=== PATIENT | female | born 1935 | race Caucasian/White ===

== ENCOUNTER 2017-08-19 11:36 | Inpatient (IN) | payer MEDICARE ==
--- OUTSIDE RECORDS SUMMARY | 2017-08-19 11:55 | XMS REPORT ---
:1935 External Reference #:[id number] Author Organization [facility] Address [address] [address] Phone [phone] Care Team Providers Name Role Phone Benjy Nolasco D.O. Primary Care Physician Unavailable Payers Type Date Identification Numbers Payment Provider Subscriber Commercial Policy Number: [id number] [employer]/Todays Options Ivory Duarte PayID: [id number] [address] [address] Attn: [place] [address] Problems Description No Information Family History Date Family Member(s) Problem(s) Comments Father due to Emphysema () - 70's Mother due to Emphysema () - 70's Siblings 5 Siblings 3 - jan, unrelated to cardiac disease Social History Type Date Description Comments Marital Status 01/2017 Lives With Alone Lives With Alone lives "[place] farm" with family nearby 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 Mauser, every day M.D. Aspirin Low Active Chewtabs 81mg once Unknown Dose 000 daily Pantoprazole Active Tablets DR 40mg 1 by Unknown Sodium 000 mouth every day Clopidogrel 0 Active Tablets 75mg 1 by Unknown Bisulfate 000 mouth every day Metoprolol Hx Tablets ER 25mg 30tabs 03/01 by R94.39 Henrique Succinate ER 017 - 24HR mouth Brittany Baird, every M.D. 018 other day Minitran Hx Patches 0.1mg/HR 30unit apply 1 R94.39 Henrique 017 - 24HR s patch to Brittany Baidr, chest M.D. 017 wall every morning and remove each evening (pt is not using) Losartan Hx Tablets 25mg 1 by Unknown Potassium 000 - mouth every day 017 Vital Signs Date Vital Result Comment 07/22/2017 Height 62 inches 5'2" Weight 170.00 lb Heart Rate 68 /min BP Systolic Sitting 156 mmHg Lue LG Cuff BP Diastolic Sitting 70 mmHg Lue LG Cuff BP Systolic Standing 148 mmHg Lue LG Cuff BP Diastolic Standing 80 mmHg Lue LG Cuff Respiratory Rate 16 /min BMI (Body Mass Index) 31.1 kg/m2 05/18/2017 Height 62 inches 5'2" Weight 171.25 lb Heart Rate 54 /min BP Systolic Sitting 110 mmHg LA reg cuff BP Diastolic Sitting 70 mmHg LA reg cuff BMI (Body Mass Index) 31.3 kg/m2 Ejection Fraction 55-60% Saran 05/06/17 12/29/2016 Height 62 inches 5'2" Weight 172.00 lb with shoes Heart Rate 54 /min BP Systolic Sitting 140 mmHg LA reg cuff BP Diastolic Sitting 98 mmHg LA reg cuff BP Systolic Standing 143 mmHg la repeat sitting BP Diastolic Standing 78 mmHg la repeat sitting BMI (Body Mass Index) 31.5 kg/m2 Ejection Fraction 50%-55% echo 06/29/16 11/22/2016 Height 62 inches 5'2" Weight 168.25 lb with shoes Heart Rate 58 /min BP Systolic Sitting 148 mmHg LA reg cuff BP Diastolic Sitting 88 mmHg LA reg cuff BMI (Body Mass Index) 30.8 kg/m2 Ejection Fraction 55% - 60% stress echo 09/29/16 11/03/2016 Height 62 inches 5'2" Weight 167.00 lb with shoes Heart Rate 60 /min BP Systolic Sitting 138 mmHg LA reg cuff BP Diastolic Sitting 82 mmHg LA reg cuff BMI (Body Mass Index) 30.5 kg/m2 Ejection Fraction 50%-55% echo 06/29/16 10/13/2016 Height 62 inches 5'2" Weight 167.00 lb w/shoes Heart Rate 68 /min BP Systolic Sitting 140 mmHg LA lg cuff BP Diastolic Sitting 70 mmHg LA lg cuff BMI (Body Mass Index) 30.5 kg/m2 Ejection Fraction 55-60% Stress Echo 09/29/16 07/27/2016 Height 62 inches 5'2" Weight 168.00 lb Heart Rate 70 /min BP Systolic Sitting 144 mmHg LA reg cuff BP Diastolic Sitting 86 mmHg LA reg cuff BMI (Body Mass Index) 30.7 kg/m2 Ejection Fraction 50% - 55% echo 06/29/16 Results Test Date Test Result H/L Range Note Basic Metabolic Panel 11/08/2016 Sodium 142 mmol/L 133-145 Potassium 4.2 mmol/L 3.5-5.0 Chloride 107 mmol/L 101-111 Co2 Carbon Dioxide 32 mmol/L 22-32 Anion Gap 3 mmol/L 2-11 Glucose 89 mg/dL 70-100 Blood Urea Nitrogen 16 mg/dL 6-24 Creatinine 0.88 mg/dL 0.51-0.95 BUN/Creatinine Ratio 18.2 8-20 Calcium 9.1 mg/dL 8.6-10.3 Egfr Non- 61.7 >60 Egfr 79.3 >60 1 Inr/Protime 11/08/2016 Inr 0.88 Low 0.89-1.11 CBC Auto Diff 11/08/2016 White Blood Count 5.7 10^3/uL 3.5-10.8 Red Blood Count 4.96 10^6/uL 4.0-5.4 Hemoglobin 14.3 g/dL 12.0-16.0 Hematocrit 43 % 35-47 Mean Corpuscular Volume 86 fL 80-97 Mean Corpuscular Hemoglobin 29 pg 27-31 Mean Corpuscular HGB Conc 34 g/dL 31-36 Red Cell Distribution Width 14 % 10.5-15 Platelet Count 159 10^3/uL 150-450 Mean Platelet Volume 8 um3 7.4-10.4 Abs Neutrophils 3.6 10^3/uL 1.5-7.7 Abs Lymphocytes 1.4 10^3/uL 1.0-4.8 Abs Monocytes 0.5 10^3/uL 0-0.8 Abs Eosinophils 0.2 10^3/uL 0-0.6 Abs Basophils 0.1 10^3/uL 0-0.2 Abs Nucleated RBC 0 10^3/uL Granulocyte % 62.7 % 38-83 Lymphocyte % 24.1 % Low 25-47 Monocyte % 8.2 % 1-9 Eosinophil % 4.1 % 0-6 Basophil % 0.9 % 0-2 Nucleated Red Blood Cells % 0.1 Pre Cath Panel 11/08/2016 Partial Thrombo Time PTT 26.9 seconds 26.0- 36.3 1 Because ethnic data is not always readily available, this report includes an eGFR for both -Americans and non- Americans. The National Kidney Disease Education Program (NKDEP) does not endorse the use of the MDRD equation for patients that are not between the ages of 18 and 70, are , have extremes of body size, muscle mass, or nutritional status, or are non- or non-. According to the National Kidney Foundation, irrespective of diagnosis, the stage of the disease is based on the level of kidney function: Stage Description GFR(mL/min/1.73 m(2)) 1 Kidney damage with normal or decreased GFR 90 2 Kidney damage with mild decrease in GFR 60-89 3 Moderate decrease in GFR 30-59 4 Severe decrease in GFR 15-29 5 Kidney failure <15 (or dialysis) Procedures Date CPT Code Description Status 07/22/2017 53439 EKG Tracing & Interpretation Completed 05/06/2017 51615 Moderate Sedation Services; Same Phys Intl 15 Mins; PT Completed >=5 Years 05/06/2017 05013 Color Flow Doppler/Interp & Reprt Completed 05/06/2017 25085 Pulse Wave/Continuous-Interp.RPT Completed 05/06/2017 17884 Echocardiography, Transesophageal, Real Time W/Image 2D Completed W/W/O M-M 03/16/2017 59605 ECHO Stress Test Incl Perf Contiuous ekg Monitoring Completed W/Phys Superv 03/16/2017 53538 ECHO, Transthroacic,2D Incl M Mode Recording Complete Completed W/Color Matt 01/27/2017 26191 ECHO Transthoracic, Real-Time 2D With Doppler And Color Completed Flow 01/21/2017 69770 ECHO Transthoracic, Real-Time 2D With Doppler And Color Completed Flow 01/21/2017 89787 ECHO Transthoracic, Real-Time 2D With Doppler And Color Completed Flow 12/29/2016 52799 EKG Tracing & Interpretation Completed 11/10/2016 49646 Left Heart Cath. Incl S/I Coronaries, Angio S/I V Gram Completed If Done 11/03/2016 51677 Left Heart Cath. Incl S/I Coronaries, Angio S/I V Gram Completed If Done 10/09/2016 01404 Holter Monitor Review (24 hr)dr review & interp only Completed 10/06/2016 49928 ECG Monitor/Recording W/Visual Superimposition Scanning Completed 09/29/2016 99585 ECHO Stress Test Incl Perf Contiuous ekg Monitoring Completed W/Phys Superv 09/29/2016 68618 ECHO Stress Test Incl Perf Contiuous ekg Monitoring Completed W/Phys Superv 08/18/2016 57125 Holter Monitor Review (24 hr) review & interp only Completed 08/18/2016 22407 ECG Monitor/Recording W/Visual Superimposition Scanning Completed 07/27/2016 35129 EKG Tracing & Interpretation Completed 06/29/2016 37516 ECHO Transthorasic Realtime 2D W Doppler & Color Flow Completed Hosp 10/12/2013 59106 ECHO Transthoracic, Real-Time 2D With Doppler And Color Completed Flow 11/18/2009 76668 ECHO Transthoracic, Real-Time 2D With Doppler And Color Completed Flow Encounters Type Date Location Provider CPT E/M Dx Office Visit 05/18/2017 11:00a [facility] Henrique Baird, 67134 I35.0 M.D. I10 I25.10 R06.00 R42 R00.1 Office Visit 12/29/2016 11:00a [facility] Henrique Baird, 61147 I25.10 M.D. I35.0 I10 R94.31 R01.1 Office Visit 11/22/2016 11:40a [facility] Joleen Anguiano, 25618 I25.10 M.D. I35.0 I10 Office Visit 11/03/2016 10:00a [facility] FLORENCIA Araujo 43407 I25.10 I35.0 I10 Office Visit 10/13/2016 4:20p [facility] Joleen Anguiano, 57199 I35.0 Jane R01.1 I25.10 R31.0 Office Visit 07/27/2016 9:40a [facility] Henrique Baird M.D. 97844 I35.0 R01.1 R00.1 I50.9 E04.1 R94.31 Plan of Care Future Appointment(s):08/10/2017 11:00 am - Hayley Borges N.P. at [facility]08/08/2017 3:00 pm - [place] Schedule at [facility]2017 10:30 am - Henrique Baird M.D. 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
[2017-08-19 12:35] LABS: ABS Basophils 0 10^3/ul (0-0.2); ABS Eosinophils 0.2 10^3/ul (0-0.6); ABS Lymphocytes 1.1 10^3/ul (1.0-4.8); ABS Monocytes 0.9 10^3/ul (0-0.8); ABS Neutrophils 8.5 10^3/ul (1.5-7.7); ABS Nucleated RBC 0 10^3/ul; Eosinophil % 1.5 % (0-6); Hematocrit 40 % (35-47); Hemoglobin 13.4 g/dl (12.0-16.0); Lymphocyte % 10.3 % (25-47); Mean Corpuscular HGB Conc 34 g/dl (31-36); Mean Corpuscular Hemoglobin 28 pg (27-31); Mean Corpuscular Volume 82 fL (80-97); Mean Platelet Volume 7.2 um3 (7.4-10.4); Nucleated Red Blood Cells % 0; Platelet Count 213 10^3/ul (150-450); Red Blood Count 4.79 10^6/ul (4.00-5.40); Red Cell Distribution Width 14 % (10.5-15); White Blood Count 10.6 10^3/ul (3.5-10.8)
[2017-08-19 12:43] LABS: INR 1.08 (0.77-1.02)
[2017-08-19 13:03] LABS: Urine Appearance Clear; Urine Blood 3+ (Negative); Urine Color Straw; Urine Ketones Negative (Negative); Urine Protein 1+(30 mg/dL) (Negative); Urine Specific Gravity 1.001 (1.010-1.030); Urine Urobilinogen Negative (Negative)
[2017-08-19] MEDS ORDERED: Iohexol 300* (CONTRAST) 10 ML SDV IV ONE (13:14)
--- NOTE | 2017-08-19 14:27 | RAD ---
INDICATION: Right lower quadrant pain. Gross hematuria. COMPARISON: Renal and bladder sonogram October 27, 2016 TECHNIQUE: Three phase imaging was performed as part of CT urography. Initially, noncontrast imaging was performed from the hemidiaphragms through the symphysis. Nephrographic and pyelographic phase imaging was then performed with injection of 100 mL Omnipaque 300. Coronal and sagittal reconstructed images were acquired. 3-D CT urography images were generated as well. FINDINGS: Lung bases: The lung bases are clear. Liver: The liver is normal in size. There are no masses. There is no ductal dilatation. Gallbladder: Cholecystectomy. Spleen: The spleen is normal in size. There are no masses. Pancreas: There is no focal pancreatic mass or ductal dilatation. Adrenal glands: There is no evidence of adrenal mass. Kidneys: The kidneys are normal in size and position. There is no definitive evidence of urolithiasis. There are no renal calculi. There are no definite ureteral calculi. There are multiple phleboliths projecting over the minor pelvis which are along the course of the distal ureters. The nephrographic and pyelographic phase images are normal. There are bilateral renal cysts with a dominant 4.5 cm right renal cyst. Renal cysts have been described on earlier sonography. The ureters appear normal. Adenopathy: There is no evidence of adenopathy by size criteria. Fluid collections: There are no free or localized fluid collections. Vessels:There are no significant atherosclerotic changes involving the aorta. There is no focal aneurysm. The iliac vessels are normal in caliber. The IVC appears normal. GI tract: The upper GI tract is unremarkable. There is an enhancing periappendiceal mass measuring 4.6 cm proximal related to a appendiceal rupture with phlegmonous change. There is no well organized abscess with liquefactive center. There is nothing amenable to percutaneous drainage at present. Pelvic organs: There is hysterectomy. There is no adnexal mass Bladder: There are no bladder masses. There is trabeculation of bladder with mild enhancement suggests the possibility of cystitis. Abdominal and pelvic soft tissues: The extraperitoneal abdominal and pelvic soft tissues appear normal.. Osseous structures: There are no acute osseous findings. Other: None IMPRESSION: 1. No convincing CT evidence of urolithiasis. Suspect cystitis. Suggest urologic referral as indicated. 2. CT findings consistent with appendiceal rupture with resultant phlegmonous change. 3. Moderate diverticula. 4. Renal cysts. 5. Cholecystectomy. Hysterectomy. Findings discussed with ED.
[2017-08-19] MEDS ORDERED: Piperacillin/Tazobactam VIAL*) 3.375 GM/15 ML VIAL IVPB ONE (14:41)
[2017-08-19] MEDS ORDERED: Piperacillin/Tazobac ADVAN(*) 3.375 GM in NS 0.9% 100 ML* 100 ML IVPB ONE (14:57)
[2017-08-19] MEDS ORDERED: ZOSYN 3.375 GM x ONE DOSE over 30 miuntes IVPB ×2 (15:00)
[2017-08-19] MEDS ORDERED: oxyCODONE/Acetamin 5/325 MG* TAB PO PRN (15:09)
[2017-08-19] MEDS ORDERED: Ondansetron 40 MG VIAL* 2 MG/ML 20 ML VIAL IV PRN (15:09)
--- NOTE | 2017-08-19 16:03 | ED ---
Johnathan Bond Rebecca, scribed for Ellie Victoria MD on 08/19/17 at 1211 . Abdominal Pain/Female - HPI Summary HPI Summary: Pt is an 81 y/o F referred from Dr. Canales who presents to ED c/o RLQ abdominal pain for at least "a few weeks" though it may be longer. Pain began at mild intensity, has been constant since onset, waxing and waning in intensity, worse since yesterday after being palpated by her surgery scheduler. On triage, pain is moderate ranked 7/10. Sx aggravated by palpation, alleviated by nothing. Additionally c/o gross hematuria since this morning which is gradually improving since onset, none present the last time she urinated in the ED, per pt. Denies fever, CP, SOB. Saw Dr. Canales a year ago for hematuria though "they never figured out the cause". PSHx aortic valve replacement (TAVR) June [address] [facility] ([place], [place]) after which she was released by her surgery scheduler, Dr. Baird, yesterday. Is on Plavix. Pt went to Dr. Canales's office this am for the gross hematuria, and Dr. Canales referred pt to the ED for further evaluation, suspecting possible nonurologic cause for her RLQ pain, and advised CT urogram which was performed in the ED. - History of Current Complaint Chief Complaint: EDAbdPain Stated Complaint: ABD PAIN Time Seen by Provider: 08/19/17 12:04 Hx Obtained From: Patient, Family/Analytical Scientist - son Onset/Duration: Lasting Weeks - "a few", Still Present, Worse Since - Yesterday Timing: Constant Severity Initially: Mild Severity Currently: Moderate Pain Intensity: 7 Pain Scale Used: 0-10 Numeric Location: Discrete At: RLQ Radiates: No Character: Sharp Aggravating Factor(s): Other: - Palpation Alleviating Factor(s): Nothing Associated Signs and Symptoms: Positive: Other: - Hematuria. Negative: Fever, Nausea, Vomiting Allergies/Adverse Reactions: Allergies Allergy/AdvReac Type Severity Reaction Status Date / Time shrimp Allergy Swelling Uncoded 04/22/14 12:20 Home Medications: Home Medications Aspirin EC TAB* [Ecotrin EC Low Dose 81 MG*] 81 mg PO DAILY 08/19/17 [History Confirmed 08/19/17] Clopidogrel TAB* [Plavix TAB*] 75 mg PO DAILY 08/19/17 [History Confirmed ] Pantoprazole TAB (NF) [Protonix TAB (NF)] 40 mg PO DAILY 08/19/17 [History Confirmed 08/19/17] PMH/Surg Hx/FS Hx/Imm Hx Previously Healthy: No Endocrine/Hematology History: Denies: Hx Diabetes Cardiovascular History: Reports: Hx Hypertension Denies: Hx Congestive Heart Failure Musculoskeletal History: Denies: Hx Osteoporosis Sensory History: Reports: Hx Cataracts, Hx Contacts or Glasses, Hx Hearing Aid - RIGHT Opthamlomology History: Reports: Hx Cataracts, Hx Contacts or Glasses - Surgical History Surgery Procedure, Year, and Place: CHOLECYSTECTOMY 30 YRS AGO [facility]. HYSTERECTOMY 40 YRS AGO [facility]. FRACTURED RIGHT FOOT 2011 [facility], [place]. TAVR, [facility] ([place], [place]) 06/2017 Hx Anesthesia Reactions: No Infectious Disease History: No Infectious Disease History: Denies: Traveled Outside the [place] in Last 30 Days - Family History Known Family History: Positive: Other - [place] - Social History Occupation: Retired Alcohol Use: None Substance Use Type: Reports: None Smoking Status (MU): Never Smoked Tobacco Review of Systems Negative: Fever Negative: Chest Pain Negative: Shortness Of Breath Positive: Abdominal Pain Positive: hematuria Skin: Negative Neurological: Negative Psychological: Normal All Other Systems Reviewed And Are Negative: Yes Physical Exam - Summary Physical Exam Summary: Appearance: Well-appearing, mild pain distress, well-nourished, pink tinged urine noted in room during physical Skin: Warm, color reflects adequate perfusion, dry Head: Normal Head/Face inspection, atraumatic Eyes: Conjunctiva clear ENT: Normal inspection Neck: Supple, no nodes, no JVD Respiratory: Lungs clear, normal breath sounds, no respiratory distress Cardio: RRR, II/ systolic murmur, pulses normal, brisk capillary refill Abdomen: Soft, tender in the RLQ, positive guarding, no rebound, no masses, no CVA tenderness Bowel sounds: Present Musculoskeletal: Strength Intact/ROM intact, no calf tenderness, no edema. Psychological: Normal Neuro: Alert, muscle tone normal, no focal deficit Triage Information Reviewed: Yes Vital Signs On Initial Exam: Initial Vitals Temp Pulse Resp BP Pulse Ox 98.5 F 80 18 130/86 95 08/19/17 11:42 08/19/17 11:42 08/19/17 11:42 08/19/17 11:42 08/19/17 11:42 Vital Signs Reviewed: Yes Diagnostics - Vital Signs Vital Signs Temp Pulse Resp BP Pulse Ox 08/19/17 11:42 98.5 F 80 18 130/86 95 - Laboratory Result Diagrams: 08/23/17 07:39 08/23/17 07:39 Lab Statement: Any lab studies that have been ordered have been reviewed, and results considered in the medical decision making process. - CT Urogram CT CT Interpretation: Positive (See Comments) - 1. No convincing CT evidence of urolithiasis. Suspect cystitis. Suggest urologic referral as indicated. 2. CT findings consistent with appendiceal rupture with resultant phlegmonous change. 3. Moderate diverticula. 4. Renal cysts. 5. Cholecystectomy. Hysterectomy. Findings discussed with ED. ED physician reviewed this report. CT Interpretation Completed By: Radiologist - EKG 1144 Cardiac Rate: NL - 76 bpm EKG Rhythm: Sinus Rhythm ST Segment: Non-Specific Ectopy: None EKG Interpretation: Nl AVIVCT, nl QTC, Q axis (-28), no acute changes EKG Comparison: Other - no prior to compare Re-Evaluation - Re-Evaluation First Eval Re-Evaluation Time: 14:15 Change: Unchanged Comment: Continued discussing presentation of symptoms and physical examination. Second Eval Re-Evaluation Time: 14:31 Change: Improved Comment: Spoke with fani Rivers immediately prior to reevaluation. No pain currently, discussed CT results. Third Eval Re-Evaluation Time: 14:46 Change: Unchanged Comment: Dr. Simon is with patient who was advised that her daughter is coming in. Abdominal Pain Fem Course/Dx - Course Course Of Treatment: 81 yo F presented to Dr. Canales's office for gross hematuria this am and several week hx of RLQ abd pain, worsening. Dr. Canales referred pt to ED recommending CT urogram. Pt is s/p TAVR in 06/2017 and is on plavix. CT urogram showed ruptured appendix with plegmon. Pt has no signs of sepsis in the ED, and hematuria has cleared. Pt is an established pt of Dr. Canales for hematuria in the past, with no etiology established for the hematuria in the past. Pt is evaluated by Dr. Simon, general surgery, for the CT findings. airplane charter clerkCourt, notified Dr. Carvajal office that the pt has a ruptured appendicitis. Spoke with son again at 1440, discussing CT results and plan for surgical consult. 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 Discharge - Sign-Out/Discharge Documenting (check all that apply): Discharge/Admit/Transfer - Admit - Discharge Plan Condition: Stable Disposition: ADMITTED TO [facility] - Billing Disposition and Condition Condition: STABLE Disposition: Admitted to Health System The documentation as recorded by the Johnathan chi Rebecca accurately reflects the service I personally performed and the decisions made by , Ellie Victoria MD.
--- NOTE | 2017-08-19 16:38 | HP ---
CC: Dr. Salvatore Nolasco; [facility]; Dr. Henrique Baird; Dr. Prabhakar Canales HISTORY AND PHYSICAL: DATE OF ADMISSION: 08/19/17 LOCATION: The patient was seen on 08/19/17 in the emergency room. HISTORY OF PRESENT ILLNESS: I was contacted by the emergency room staff to evaluate Ms. Duarte, an 81- year-old female, who was recently diagnosed with possible ruptured appendicitis. The patient's story starts about 3 weeks ago when she started dealing with a right- sided abdominal p ain. This had waxed and waned as the patient describes. It has mostly stayed in the same spot in th e right lower quadrant, nonradiating. No accompanying nausea or vomiting, no fevers or chills, no co nstipation. The patient is status post TAVR at [place] in mid June. The patient had an uneventful course with a single overnight visit. She had followed up with her [employer] consultant yesterday and was cleared from ca rdiac standpoint after the procedure. The patient did describe her persistent abdominal pain had star randell to become worse at that time. She was referred to Urology due to hematuria. The patient describ ed gross hematuria. When she presented to Urology this morning, she was examined and it was felt kaushal t there was a potential for another intraabdominal process and for this reason was sent to the emerge ncy room for workup, which included a CT scan. The patient denies any previous similar symptoms. She does have appetite and she is doing her regula r activities. PAST MEDICAL HISTORY: Hypertension, heart murmur, and aortic stenosis. PAST SURGICAL HISTORY: Right foot surgery secondary to trauma, the TAVR as described, and a bladder sling. MEDICATIONS: Include: 1. Plavix 75 mg daily. She was told she needed this for 3 months after the procedure. 2. 81 mg aspirin. 3. Protonix, which I believe is likely given to her for protection since she was started on aspirin and Plavix. ALLERGIES: She is allergic to SHRIMP, but not allergic to any medications. SOCIAL HISTORY: [place] She has family nearby. Her in January. She is ambulatory, cooks for herself, wants to live to 89 years old. REVIEW OF SYSTEMS: No shortness of breath or chest pain. No fevers or chills. No nausea or vomitin g. Good appetite. Abdominal complaints as described. No dysuria, but hematuria that she notes has seemingly resolved over the course of last few hours. She does have appetite. She does walk with a limp. No bleeding or clotting disorders, but again is on the Plavix and aspirin as described. No hi story of ulcerative colitis or Crohn's disease. PHYSICAL EXAMINATION GENERAL: Alert and oriented x3, in no apparent distress. VITAL SIGNS: She is afebrile, 98.3; blood pressure is 146/84; heart rate is 74; O2 sat is 96% on angy m air. HEAD, EARS, EYES, NOSE, AND THROAT: Normocephalic and atraumatic. Sclerae anicteric. Mucous membra jimmie are moist. NECK: No lymphadenopathy. LUNGS: Clear to auscultation bilaterally. ABDOMEN: Soft, nondistended. Tender with tenderness to percussion, but no rebound, at the right low er quadrant. No hernias are noted. Tenderness does extend towards the suprapubic region. There are no overlying skin changes. She has no CVA tenderness. EXTREMITIES: Show minimal amount of pitting bilaterally. RECTAL: Exam was not performed. LABORATORY DATA/DIAGNOSTIC STUDIES: Labs reviewed, show a white count of 10.6. Chemistry panel has an elevated CRP of 56, total bilirubin of 1.3, lactic acid of 0.6. There is blood in her urine. CAT scan was performed. This was a urogram CT that required IV contrast only. These images were revi ewed. It did not show any free air or free fluid. There was an enhancing periappendiceal mass measu ring 4.6 cm that looked related to an appendiceal rupture with possible phlegmonous changes. No evid ence of organized abscess. She had moderate diverticula, but no diverticulitis. 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 IMPRESSION AND PLAN: An 81-year-old female, otherwise healthy, who presents with a close to 3-week h istory of waxing and waning right lower quadrant pain and now with signs of a ruptured appendix with tenderness to the right lower quadrant, but no evidence of obstruction or sepsis. The patient has posada d colonoscopies and showed no evidence of malignancy. Although this does remain a potential differen tial diagnosis, my recommendation at this point is IV fluids, IV antibiotics. She can take p.o. I w ould like to hold her aspirin and Plavix, but we will defer to Cardiology for this. I would like to repeat her CAT scan with p.o. and IV contrast on Tuesday to see if developing abscess is formed. I be lieve the patient would benefit from the IV antibiotics through the weekend. I have discussed this w ith the patient. She is aware and agrees to proceed in this fashion. She may require urgent surgery if she does show signs of sepsis. The patient's questions were answered. We will reach out to Card iology. I discussed the case with the hospitalist service whom I want to consult. TIME SPENT: Overall, 40 minutes were spent with the patient [id number] with additional time spent discussing with other doctors, mainly from the hospitalist service. [id number]/[facility] #: [id number]
[2017-08-19] MEDS: Piperacillin/Tazobactam VIAL*) 3.375 GM in NS 0.9% 100 ML* 100 ML IVPB SCH (20:28)
[2017-08-19] MEDS ORDERED: Heparin VIAL(*) 5000 UNITS/ML VIAL (FIVE THOUSAND) SUBCUT SCH (22:00)
[2017-08-19] MEDS: Heparin VIAL(*) 5000 UNITS/ML VIAL (FIVE THOUSAND) SUBCUT SCH (22:32)
--- NOTE | 2017-08-20 01:54 | CONS ---
CC: Dr. Nolasco MEDICAL CONSULTATION REPORT: DATE OF CONSULT: 08/19/17 TIME OF MY EVALUATION: 4 p.m. PRIMARY CARE PROVIDER: Benjy Nolasco DO REASON FOR CONSULTATION: Antiplatelet therapy management and timing of cessation around procedure for probable ruptured appendicitis. HISTORY OF PRESENT ILLNESS: Ms. Duarte was admitted to the hospital having complained of 3 weeks of right-sided abdominal pain that was diagnosed (via abdominal CT with contrast) as ruptured appendicitis. The patient described waxing and waning abdominal pain. The patient described the pain in her right lower quadrant without radiation and without other accompanying symptoms. She denied fevers. The patient had a transaortic valve replacement in [place] in June of this year, which was tolerated without complication. The patient also suffered from intermittent hematuria and was referred to Urology for this problem. The patient described gross hematuria and this largely resolved by the time she was seen by Dr. Canales. Dr. Canales felt that there was a nonurologic process at play and referred her to the emergency room for a CT scan. The CT scan showed the likely ruptured appendicitis. No history of previous abdominal surgeries and no history of long courses of steroids nor was there any history of diverticulitis or febrile episodes in the past month. PAST MEDICAL HISTORY: 1. Hypertension. 2. Aortic stenosis status post TAVR. 3. History of bladder sling. 4. History of right foot trauma surgery remotely. OUTPATIENT MEDICATIONS: 1. Protonix 40 mg by mouth daily. 2. Aspirin 81 mg daily. 3. Plavix 75 mg by mouth daily - for 3 months after the TAVR. ALLERGIES: SHRIMP but not to medications. SOCIAL HISTORY: She is a . She has family in the area. Her recently in January secondary to Alzheimer's disease. The patient is eager to continue living and wishes to be a full code. REVIEW OF SYSTEMS: The patient has remarkably negative review of 14 systems. The patient is walking without difficulty, though she has a limp. No known clotting disorders prior to her aspirin and Plavix. No history of diarrhea. No chest pain or difficulty breathing. No focal neurologic complaints. No history of thought disorder. No endocrinopathies noted. PHYSICAL EXAM: On admission; Vitals: Temperature 98.3 degrees Fahrenheit, blood pressure 140s/80s, heart rate 70s, oxygen saturation 96% on room air. HEENT: Oropharynx is clear. Mucous membranes are moist. No posterior pharyngeal erythema or exudates. NECK: No adenopathy. Normal JVD. Lungs: Clear to auscultation. No focal rales, rhonchi, or wheezing. Cardiac: No murmurs appreciated status post TAVR as noted. Normal peripheral perfusion. Abdomen is soft and nondistended. She does have right lower quadrant tenderness , but not acutely. Extremities: No clubbing or cyanosis. Minimal edema bilaterally. Neuro: No focal abnormalities. Normal sensory, motor, proprioception exam components. Psych: Normal affect. No acute anxiety or depression. ADMISSION DATA: Includes a white blood cell count of 10.6, hemoglobin 13.4, platelets 213. INR currently 1.08. Chemistries normal save a modestly elevated glucose of 107. Total bilirubin elevated at 1.3. AST and ALT are normal. Troponin 0. CRP elevated at 55. Albumin and total protein are 3.8 and 7.2, respectively. Lipase normal at 16. Lactic acid was normal on 2 separate occasions. The patient's urinalysis is 3+ blood, but no rbc's are appreciated, specific gravity 0.001. IMAGING STUDIES: Included the CT study at 11:39 hours on the day of admission and showed no convincing CT evidence of urolithiasis, but there were findings consistent with appendiceal rupture with resultant phlegmonous change with moderate diverticula, renal cyst noted and status post cholecystectomy and hysterectomy. IMPRESSION: Ms. Duarte is an 81-year-old female admitted with likely appendiceal rupture, referred to the emergency room from outpatient urology visit that concluded her symptomatology was non-urologic in nature. The patient is admitted to the surgical service. There was assistance wanted with respect to her antiplatelet therapy in the setting of being post transcatheter aortic valve replacement. In terms of antiplatelet therapy, this is to continue typically for 3 months following the transcatheter aortic valve replacement. This will continue for now as there is no intention of bringing the patient to the operating room tonight or even tomorrow. IV antibiotics have been started by the surgical team and I agree with the choice of Zosyn for ruptured appendix with mild peritoneal signs. The patient is stable at this point. I do not feel she is septic. In terms of holding the antiplatelet regimen, I would recommend stopping 2 days in advance of a planned IR drainage or surgery. If emergent surgery is needed, of course, one could proceed even in the setting of aspirin and Plavix therapy. However, because this symptomatology has been going on for weeks at this point, I think the likelihood of her decompensating while on antibiotics is unlikely. The patient will be admitted to the surgical floor and the hospitalist team will follow along with you. Thank you very much for the consultation and the opportunity to offer advisement on this kind patient's case. [id number]/[facility] #: [id number] MERI
[2017-08-20] MEDS: Piperacillin/Tazobactam VIAL*) 3.375 GM in NS 0.9% 100 ML* 100 ML IVPB SCH ×3 (04:01→19:42)
[2017-08-20] MEDS: Heparin VIAL(*) 5000 UNITS/ML VIAL (FIVE THOUSAND) SUBCUT SCH ×3 (05:46→21:35)
[2017-08-20 05:48] LABS: Hematocrit 35 % (35-47); Mean Corpuscular HGB Conc 34 g/dl (31-36); Mean Corpuscular Hemoglobin 28 pg (27-31); Mean Corpuscular Volume 82 fL (80-97); Red Blood Count 4.27 10^6/ul (4.00-5.40); Red Cell Distribution Width 14 % (10.5-15); White Blood Count 10.9 10^3/ul (3.5-10.8)
[2017-08-20 06:02] LABS: EGFR Non-African American 80.3 (>60)
[2017-08-20 06:30] LABS: Mean Platelet Volume 7.8 um3 (7.4-10.4); Platelet Count 179 10^3/ul (150-450)
[2017-08-20 06:31] LABS: ABS Basophils 0.2 10^3/ul (0-0.2); ABS Eosinophils 0.8 10^3/ul (0-0.6); ABS Lymphocytes 1.3 10^3/ul (1.0-4.8); ABS Neutrophils 8.5 10^3/ul (1.5-7.7); ABS Nucleated RBC 0.1 10^3/ul
[2017-08-20 06:32] LABS: Eosinophil % 1.7 % (0-6); Nucleated Red Blood Cells % 0.4
[2017-08-20 06:33] LABS: ABS Monocytes 0.8 10^3/ul (0-0.8)
[2017-08-20] MEDS: Clopidogrel TAB* 75 MG PO SCH (09:24)
[2017-08-20] MEDS: CMCS - Pantoprazole TAB (NF) 40 MG TAB PO SCH (09:24)
[2017-08-20] MEDS: Aspirin EC TAB* 81 MG TAB.EC PO SCH (09:24)
--- NOTE | 2017-08-20 09:44 | PN ---
Progress Note - Progress Note Date of Service: 08/20/17 SOAP: Subjective: Pt seen and examined. DOing well. tolerating diet continued RLQ pain. pos BM Objective: af vss lungs clear abdo: soft/ tender at RLQ, without rebound. palpable mass at site of pain labs noted Assessment: perforated appendicitis, HD stable; DDX includes malignancy Plan: abx ivlock SAACMA to cover me until 6.25
--- NOTE | 2017-08-20 19:05 | PN ---
Subjective Date of Service: 08/20/17 Interval History: . patient sleeping soundly this AM no pain without movement vitals stable and normal discussed plan for continued observation. plan for re-imaging 08/22/17 as per surgical team (CT Abd/pelvis with contrast). Family History: Unchanged from Admission Social History: Unchanged from Admission Past Medical History: Unchanged from Admission Objective Active Medications: . Aspirin (Aspirin Ec Tab*) [address] [facility] Last Admin: 08/20/17 09:24 Dose: 81 mg Clopidogrel Bisulfate (Plavix Tab*) [address] [facility] Last Admin: 08/20/17 09:24 Dose: 75 mg Heparin Sodium (Porcine) (Heparin Vial(*)) 5,[address] [facility] Last Admin: 08/20/17 15:34 Dose: 5,000 units Piperacillin Sod/Tazobactam (Sod 3.375 gm/ Sodium Chloride) 100 mls @ 25 mls/ hr IVPB Q8H [facility] Last Admin: 08/20/17 12:30 Dose: 25 mls/hr Ondansetron HCl (Zofran 40 Mg Vial*) 4 mg IV Q4H PRN PRN Reason: NAUSEA/VOMITING Oxycodone/Acetaminophen (Percocet 5/325 Tab*) 1 tab PO Q4H PRN PRN Reason: PAIN Pantoprazole Sodium (Protonix Tab (Nf)) [address] [facility] Last Admin: 08/20/17 09:24 Dose: 40 mg . Vital Signs - 8 hr 08/20/17 08/20/17 11:19 15:19 Temperature 98.8 F 98.1 F Pulse Rate 73 66 Respiratory 17 24 Rate Blood Pressure 116/56 111/51 (mmHg) O2 Sat by Pulse 95 96 Oximetry Oxygen Devices in Use Now: None Appearance: NAD Eyes: No Scleral Icterus Ears/Nose/Mouth/Throat: NL Teeth, Lips, Gums, Clear Oropharnyx Neck: NL Appearance and Movements; NL JVP Respiratory: Symmetrical Chest Expansion and Respiratory Effort Cardiovascular: NL Sounds; No Murmurs; No JVD Abdominal: - - RLQ tenderness on palpation, no generalized peritoneal signs. Lymphatic: No Cervical Adenopathy Extremities: No Edema Skin: No Rash or Ulcers Neurological: Alert and Oriented x 3 Lines/Tubes/Other Access: Clean, Dry and Intact Peripheral IV Nutrition: Taking PO's Result Diagrams: 08/20/17 05:21 08/20/17 05:21 Microbiology and Other Data: Microbiology 08/19/17 12:39 Urine Culture - Final Urine Assess/Plan/Problems-Billing . Assessment: 81 yo F with subacute abd pain and perforated acute appendicitis. Plan to consolidate with IV antibiotics -- and plan for drainage vs. surgery depending on results of CT Abdomen scheduled for 08/22/17. Hold antiplatelet therapy AM of 08/22/2017. - Patient Problems (1) Ruptured appendicitis Current Visit: Yes Status: Acute Priority: High Code(s): K35.2 - ACUTE APPENDICITIS WITH GENERALIZED PERITONITIS Comment: - IV Zosyn - repeat CT 08/22/17 - surgery team following.
[2017-08-20] MEDS ORDERED: NS 0.9% 100 ML* 100 ML ONE (19:39)
[2017-08-21] MEDS: Piperacillin/Tazobactam VIAL*) 3.375 GM in NS 0.9% 100 ML* 100 ML IVPB SCH ×3 (04:31→20:10)
[2017-08-21] MEDS: Heparin VIAL(*) 5000 UNITS/ML VIAL (FIVE THOUSAND) SUBCUT SCH ×3 (06:07→21:28)
[2017-08-21] MEDS: Clopidogrel TAB* 75 MG PO SCH (08:51)
[2017-08-21] MEDS: CMCS - Pantoprazole TAB (NF) 40 MG TAB PO SCH (08:51)
[2017-08-21] MEDS: Aspirin EC TAB* 81 MG TAB.EC PO SCH (08:51)
--- NOTE | 2017-08-21 13:11 | PN ---
Progress Note - Progress Note Date of Service: 08/21/17 Note: Afeb, VS OK Jam po's, No N/V, voiding well Abd: soft tender RLQ, no peritonitis/rebound, No Rovsing's Impr: Responding appropriately to abx for missed appendicitis re-check CT 08/22 Decrease ivf
--- NOTE | 2017-08-21 14:08 | PN ---
Subjective Date of Service: 08/21/17 Interval History: . Doing well. Denies pain unless moving. CT Abd/pelvis in AM. Hold plavix in AM. Potential for drainage in near future pending imaging results. Family History: Unchanged from Admission Social History: Unchanged from Admission Past Medical History: Unchanged from Admission Objective Active Medications: . Aspirin (Aspirin Ec Tab*) 81 mg PO DAILY [facility] Last Admin: 08/21/17 08:51 Dose: 81 mg Clopidogrel Bisulfate (Plavix Tab*) 75 mg PO DAILY [facility] Last Admin: 08/21/17 08:51 Dose: 75 mg Heparin Sodium (Porcine) (Heparin Vial(*)) 5,000 units SUBCUT Q8HR [facility] Last Admin: 08/21/17 06:07 Dose: 5,000 units Piperacillin Sod/Tazobactam (Sod 3.375 gm/ Sodium Chloride) 100 mls @ 25 mls/ hr IVPB Q8H [facility] Last Admin: 08/21/17 12:14 Dose: 25 mls/hr Ondansetron HCl (Zofran 40 Mg Vial*) 4 mg IV Q4H PRN PRN Reason: NAUSEA/VOMITING Oxycodone/Acetaminophen (Percocet 5/325 Tab*) 1 tab PO Q4H PRN PRN Reason: PAIN Last Admin: 08/20/17 19:42 Dose: 1 tab Pantoprazole Sodium (Protonix Tab (Nf)) 40 mg PO DAILY [facility] Last Admin: 08/21/17 08:51 Dose: 40 mg . Vital Signs - 8 hr 08/21/17 08/21/17 08/21/17 06:48 07:37 08:00 Temperature 98.7 F Pulse Rate 74 Respiratory 16 16 17 Rate Blood Pressure 135/71 (mmHg) O2 Sat by Pulse 93 Oximetry 08/21/17 11:31 Temperature 98.1 F Pulse Rate 68 Respiratory 17 Rate Blood Pressure 148/58 (mmHg) O2 Sat by Pulse 93 Oximetry Oxygen Devices in Use Now: None Appearance: NAD Eyes: No Scleral Icterus Ears/Nose/Mouth/Throat: NL Teeth, Lips, Gums, Clear Oropharnyx Neck: NL Appearance and Movements; NL JVP Respiratory: Symmetrical Chest Expansion and Respiratory Effort Cardiovascular: NL Sounds; No Murmurs; No JVD Abdominal: - - RLQ tenderness Lymphatic: No Cervical Adenopathy Extremities: No Edema Skin: No Rash or Ulcers Neurological: Alert and Oriented x 3 Lines/Tubes/Other Access: Clean, Dry and Intact Peripheral IV Nutrition: Taking PO's Result Diagrams: 08/20/17 05:21 08/20/17 05:21 Microbiology and Other Data: Microbiology 08/19/17 12:39 Urine Culture - Final Urine Assess/Plan/Problems-Billing . Assessment: 81 yo F with subacute abd pain and perforated acute appendicitis. Plan to consolidate with IV antibiotics -- and plan for drainage vs. surgery depending on results of CT Abdomen scheduled for 08/22/17. Hold anti-platelet therapy AM of 08/22/2017. - Patient Problems (1) Ruptured appendicitis Current Visit: Yes Status: Acute Priority: High Code(s): K35.2 - ACUTE APPENDICITIS WITH GENERALIZED PERITONITIS Comment: - IV Zosyn - repeat CT 08/22/17 - surgery team following.
--- NOTE | 2017-08-21 16:43 | CONSULT ---
Subjective Date of Service: 08/21/17 - CC: RLQ pain Interval History: Persistant RLQ pain with movement. Hematuria has resolved. No SOB. Family History: Unchanged from Admission Social History: Unchanged from Admission Past Medical History: Unchanged from Admission - Aortic stenosis s/p TAVR , HTN, BPV, CHF. s/p TAVR, cholecystectomy, YUNG Medications Active Medications: Aspirin (Aspirin Ec Tab*) 81 mg PO DAILY [facility] Last Admin: 08/21/17 08:51 Dose: 81 mg Clopidogrel Bisulfate (Plavix Tab*) 75 mg PO DAILY [facility] Heparin Sodium (Porcine) (Heparin Vial(*)) 5,000 units SUBCUT Q8HR [facility] Last Admin: 08/21/17 15:09 Dose: 5,000 units Piperacillin Sod/Tazobactam (Sod 3.375 gm/ Sodium Chloride) 100 mls @ 25 mls/ hr IVPB Q8H [facility] Last Admin: 08/21/17 12:14 Dose: 25 mls/hr Ondansetron HCl (Zofran 40 Mg Vial*) 4 mg IV Q4H PRN PRN Reason: NAUSEA/VOMITING Oxycodone/Acetaminophen (Percocet 5/325 Tab*) 1 tab PO Q4H PRN PRN Reason: PAIN Last Admin: 08/20/17 19:42 Dose: 1 tab Pantoprazole Sodium (Protonix Tab (Nf)) 40 mg PO DAILY [facility] Last Admin: 08/21/17 08:51 Dose: 40 mg Home Medications: Aspirin EC TAB* [Ecotrin EC Low Dose 81 MG*] 81 mg PO DAILY 08/19/17 [History Confirmed 08/19/17] Clopidogrel TAB* [Plavix TAB*] 75 mg PO DAILY 08/19/17 [History Confirmed ] Pantoprazole TAB (NF) [Protonix TAB (NF)] 40 mg PO DAILY 08/19/17 [History Confirmed 08/19/17] Review of Systems - Measurements Intake and Output: Intake and Output Last 24 Hours 08/19/17 08/20/17 08/21/17 08/22/17 04:59 04:59 04:59 04:59 Intake Total 878 1278 655 Output Total 650 9040 400 Balance 228 -372 255 Weight 170 lb Intake: IV Fluids 524 20 30 LR 524 NS 20 30 IVPB 114 213 105 ABX - ZOSYN 114 213 105 Oral 240 1045 520 Output: Urine 650 1650 400 Other: Date of Last Bowel 08/20/17 Movement # Bowel Movements 1 Estimated Stool Amount Small - Review of Systems General Comments: Denises SOB, orthopnea or chest pain. No fevers or chills. 2 week history of RLQ pain. Hematuria prior to admission. Review of Systems Statement: All other review of systems negative, unless stated above. Objective Vital Signs: Temp Pulse Resp BP Pulse Ox 98.1 F 68 17 148/58 93 08/21/17 11:31 08/21/17 11:31 08/21/17 11:31 08/21/17 11:31 08/21/17 11:31 Oxygen Devices in Use Now: None Appearance: elederly female seated, reading, appears comfortable. Eyes: PERRLA Ears/Nose/Mouth/Throat: Mucous Membranes Moist Neck: NL Appearance and Movements; NL JVP Respiratory: Symmetrical Chest Expansion and Respiratory Effort - crackles in the bases bilaterally. Cardiovascular: RRR - soft systolic murmur upper sternal border. Abdominal: - - RLQ tender. Extremities: No Edema, No Clubbing, Cyanosis Skin: No Rash or Ulcers Neurological: Alert and Oriented x 3 Laboratory Results: 08/20/17 05:21 08/20/17 05:21 INR (Anticoag Therapy) 1.08 (0.77-1.02) H 08/19/17 12:16 Total Bilirubin 1.30 mg/dL (0.2-1.0) H 08/19/17 12:16 AST 13 U/L (13-39) 08/19/17 12:16 ALT 8 U/L (7-52) 08/19/17 12:16 Alkaline Phosphatase 76 U/L (34-104) 08/19/17 12:16 Total Protein 7.2 g/dL (6.4-8.9) 08/19/17 12:16 Albumin 3.8 g/dL (3.2-5.2) 08/19/17 12:16 Globulin 3.4 g/dL (2-4) 08/19/17 12:16 Albumin/Globulin Ratio 1.1 (1-3) 08/19/17 12:16 08/19/17 12:16 Troponin I 0.00 Diagnostic Imaging: ECHO (Dr Baird) 08/16/17) EF 60-65%, abnormal diastolic filling, bioprosthetic AVR, no AI, mean gradient 18 mmHg, MAC (mitral annular cacification) with mild MR and MS, mild TR, PA pressure 43 mmHg. 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 Assessment/Plan 81 yo female with a history of severe aortic valve stenosis who underwent TAVR (#26 Vivi 3) who presented to Dr Baird's office 08/18/17 for routine evalauation, noted 2 weeks of RLQ pain and hematuria. The patient was sent to the ED and found to have a perforated appendix. Cardiology concerns include: Anticoagulation: Plavix and her fresh bioprosthetic valve. The plavix can be held now in anticipation of surgury or percutanous procedure, in this situation the risks of staying on much higher than holding. Plavix can be resumed post op when hemodynamically stable. Antibiotics and TAVR: Endocarditis risk increased over lower [place] valve, aggressive IV antibiotics on now. Would take endocarditis risk into consideration for post procedure antibiotic regimen and in decisions regarding surgical/procedural management, definitive treatment/procedure with the least chance of prolonged or recurrent bacteremia will be of benefit with her recent TAVR. CHF risk: Pt has had CHF in the past and based on her recent echo with gradients across the AV on the higher side and MR, MS, and diastolic dysfunction of the LV , she remains at risk for diastolic CHF. She has some crackles in the lungs now. I would avoid over aggressive hydration, carefull I/o's and follow clinically. Cardiology will follow distantly as the hospitalist service is comanaging.
[2017-08-22] MEDS: Piperacillin/Tazobactam VIAL*) 3.375 GM in NS 0.9% 100 ML* 100 ML IVPB SCH ×3 (03:47→20:05)
[2017-08-22] MEDS: Heparin VIAL(*) 5000 UNITS/ML VIAL (FIVE THOUSAND) SUBCUT SCH ×3 (05:44→22:51)
--- NOTE | 2017-08-22 10:34 | PN ---
Progress Note - Progress Note Date of Service: 08/22/17 SOAP: Subjective: Feels better today-pain improved Appetite slightly better Objective: Temp Pulse Resp BP Pulse Ox 98.3 F 63 16 147/69 98 08/22/17 07:49 08/22/17 07:49 08/22/17 07:49 08/22/17 07:49 08/22/17 07:49 Intake & Output 08/20/17 08/21/17 08/22/17 08/23/17 06:59 06:59 06:59 06:59 Intake Total 878 1278 1290 Output Total 950 1350 1100 300 Balance -72 -72 190 -300 Weight 170 lb Intake: IV Fluids 524 20 65 LR 524 NS 20 65 IVPB 114 213 305 ABX - ZOSYN 114 213 305 Oral 240 1045 920 Output: Urine 950 1350 1100 300 Other: Date of Last Bowel 08/20/17 Movement # Bowel Movements 1 Estimated Stool Amount Small PEX: Comfortable sitting up in chair Lungs are clear Abd is soft and non-distended. Bowel sounds are present Tenderness in the right lower quadrant with some voluntary guarding, no peritoneal irritation. No generalized tenderness. Ext without edema No labs today Assessment: Appendicitis--delayed presentation. CT with phlegmon, no obvious abscess. She feels better-remains afebrile on IV abx No signs of sepsis or peritonitis Plan: Continue IV abx CT today to follow up and rule out abscess development If continues to improve and no abscess, plan intermediate teacher IV and oral antibiotics with consideration of interval appendectomy. Discussed with patient and her son.
[2017-08-22] MEDS ORDERED: Iohexol 300* (CONTRAST) 10 ML SDV IV ONE (10:59)
[2017-08-22] MEDS: CMCS - Pantoprazole TAB (NF) 40 MG TAB PO SCH (12:14)
[2017-08-22] MEDS: Aspirin EC TAB* 81 MG TAB.EC PO SCH (12:14)
--- NOTE | 2017-08-22 12:41 | RAD ---
INDICATION: Ruptured appendicitis. Assess for abscess. Remote cholecystectomy and hysterectomy. COMPARISON: No relevant prior exams available on the [facility] for comparison. TECHNIQUE: Multidetector CT images were obtained from the lung bases to the ischial tuberosities with 103 mL Omnipaque 300 IV and oral contrast. Multiplanar reformation. 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 Post cholecystectomy. Negative for biliary dilatation. Unremarkable liver, pancreas, spleen. 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 Medially directed diverticulum at the second segment of the duodenum without acute inflammatory change. Enteric contrast extends to the distal sigmoid colon. No suspicious finding of the small bowel loops. Infra cecal appendix is dilated and ill-defined with severe periappendiceal inflammatory change. No conspicuous appendicolith No loculated abscess collection visualized. Small volume of nonloculated fluid along the RIGHT pelvic sidewall. Severe colonic diverticulosis most marked at the sigmoid colon without findings of acute diverticulitis. Negative for free air. Negative for significant hernias. Normal adrenal glands. Symmetric nephrograms and pyelograms. 3.6 cm cortical cyst mid pole RIGHT kidney. Smaller cortical cyst at the inferior pole of the LEFT kidney. Negative for hydronephrosis. Unremarkable nondilated ureters and partially distended urinary bladder. Post hysterectomy. Unremarkable adnexal regions. Negative for lymphadenopathy. Atherosclerotic plaque of normal diameter abdominal aorta and iliac arteries. Largely decompressed IVC indicating lower volume state. Chronic appearing moderate anterior compression fracture of T12. No acute fracture or suspicious focal osseous lesions evident. IMPRESSION: The constellation of findings is most consistent with acute appendicitis with severe periappendiceal inflammatory change without discrete loculated abscess collection.
[2017-08-23] MEDS: Piperacillin/Tazobactam VIAL*) 3.375 GM in NS 0.9% 100 ML* 100 ML IVPB SCH (04:20)
[2017-08-23] MEDS: Heparin VIAL(*) 5000 UNITS/ML VIAL (FIVE THOUSAND) SUBCUT SCH ×2 (05:39→13:51)
[2017-08-23 08:24] LABS: ABS Basophils 0 10^3/ul (0-0.2); ABS Eosinophils 0.2 10^3/ul (0-0.6); ABS Lymphocytes 1.2 10^3/ul (1.0-4.8); ABS Monocytes 0.4 10^3/ul (0-0.8); ABS Neutrophils 2.5 10^3/ul (1.5-7.7); ABS Nucleated RBC 0 10^3/ul; Eosinophil % 4.9 % (0-6); Hematocrit 36 % (35-47); Hemoglobin 12.5 g/dl (12.0-16.0); Mean Corpuscular HGB Conc 35 g/dl (31-36); Mean Corpuscular Hemoglobin 28 pg (27-31); Mean Corpuscular Volume 80 fL (80-97); Mean Platelet Volume 7.3 um3 (7.4-10.4); Nucleated Red Blood Cells % 0; Platelet Count 191 10^3/ul (150-450); Red Blood Count 4.44 10^6/ul (4.00-5.40); Red Cell Distribution Width 14 % (10.5-15); White Blood Count 4.4 10^3/ul (3.5-10.8)
[2017-08-23 08:42] LABS: EGFR Non-African American 77.7 (>60)
--- NOTE | 2017-08-23 08:43 | PN ---
Subjective Date of Service: 08/23/17 Interval History: Pt feels good today and would like to go home. She agrees to plan of placing midline and receiving IV abx for 1 week. She states transportation wont be a problem. Denies SOB/CP. No abd pain. No fevers or chills. Family History: Unchanged from Admission Social History: Unchanged from Admission Past Medical History: Unchanged from Admission Objective Active Medications: Aspirin (Aspirin Ec Tab*) 81 mg PO DAILY FOR[facility]LY [facility], [facility]1983 Last Admin: 08/22/17 12:14 Dose: Not Given Clopidogrel Bisulfate (Plavix Tab*) 75 mg PO DAILY FOR[facility]LY [facility], [facility]1983 Heparin Sodium (Porcine) (Heparin Vial(*)) 5,000 units SUBCUT Q8HR FOR[facility]LY [facility], 1928[facility]1983 Last Admin: 08/23/17 05:39 Dose: 5,000 units Piperacillin Sod/Tazobactam (Sod 3.375 gm/ Sodium Chloride) 100 mls @ 25 mls/ hr IVPB Q8H FOR[facility]LY [facility], [facility]1983 Last Admin: 08/23/17 04:20 Dose: 25 mls/hr Ondansetron HCl (Zofran 40 Mg Vial*) 4 mg IV Q4H PRN PRN Reason: NAUSEA/VOMITING Oxycodone/Acetaminophen (Percocet 5/325 Tab*) 1 tab PO Q4H PRN PRN Reason: PAIN Last Admin: 08/20/17 19:42 Dose: 1 tab Pantoprazole Sodium (Protonix Tab (Nf)) 40 mg PO DAILY FOR[facility]LY [facility], [facility] Last Admin: 08/22/17 12:14 Dose: Not Given Vital Signs - 8 hr 08/23/17 03:19 Temperature 98.2 F Pulse Rate 65 Respiratory 22 Rate Blood Pressure 152/56 (mmHg) O2 Sat by Pulse 97 Oximetry Oxygen Devices in Use Now: None Appearance: well developed 81 yo female laying in bed A+Ox3 in NAD Eyes: No Scleral Icterus, PERRLA Ears/Nose/Mouth/Throat: NL Teeth, Lips, Gums, Mucous Membranes Moist Neck: NL Appearance and Movements; NL JVP Respiratory: Symmetrical Chest Expansion and Respiratory Effort Cardiovascular: NL Sounds; No Murmurs; No JVD, RRR, No Edema Abdominal: NL Sounds; No Tenderness; No Distention Extremities: No Edema, No Clubbing, Cyanosis Skin: No Rash or Ulcers, No Nodules or Sclerosis Neurological: Alert and Oriented x 3, NL Sensation, NL Gait, NL Muscle Strength and Tone Lines/Tubes/Other Access: Clean, Dry and Intact Peripheral IV Nutrition: Taking PO's Result Diagrams: 08/23/17 07:39 08/23/17 07:39 Microbiology and Other Data: Microbiology 08/19/17 12:39 Urine Culture - Final Urine Assess/Plan/Problems-Billing . Assessment: 81 yo F with subacute abd pain and perforated acute appendicitis. - Patient Problems (1) Ruptured appendicitis Comment: - Doing well. Stable. -Appreciate ID consult, Plan to switch to Ceftriaxone 1gm IV (recommended for 1 week), place midline and set up with [facility] outpt infusion, and Flagyl 250 mg PO BID for 1 week then recommended switching to Augmentin for 2 weeks (after Flagyl and ceftriaxone). - Follow up with surgery team Dr. Miles next week, and Dr. Lehman as outpt. - Ok to DC to home (2) Hypertension Comment: - SBP 120-150's. May be secondary to IVFs, not on [employer] home [employer]. Will need to be followed up with PCP (3) Aortic stenosis Comment: Recent TAVR mid-june, continue plavix Status and Disposition: Discussed with Dr. Simon this morning. Surgery to DC to home when outpt IV is set-up and midline is placed, possible today or tomorrow.
[2017-08-23] MEDS ORDERED: metroNIDAZOLE TAB* 250 MG PO SCH (09:00)
[2017-08-23] MEDS ORDERED: cefTRIAXone(*) 1 GM in NS 0.9% 50 ML* 50 ML IVPB ONE (09:00)
[2017-08-23] MEDS ORDERED: cefTRIAXone(*) 1 GM in NS 0.9% 50 ML* 50 ML IVPB SCH (09:00)
[2017-08-23] MEDS: CMCS - Pantoprazole TAB (NF) 40 MG TAB PO SCH (09:25)
[2017-08-23] MEDS: Aspirin EC TAB* 81 MG TAB.EC PO SCH (09:25)
--- NOTE | 2017-08-23 09:48 | PN ---
Progress Note - Progress Note Date of Service: 08/23/17 SOAP: Subjective: Pt seen and examined. Feeling well. Wants to go home Objective: af vss abdo: soft/ ND/ Minimal tenderness at RLQ with palp mass. labs noted CT reviewed: no abscess, no obstruction Assessment: Perforated appendicitis. stable for discharge Plan: abx as per ID f[facility] next week.
[2017-08-23 17:04] VITALS: BP 149/63
--- NOTE | 2017-08-23 19:52 | CONS ---
CONSULTATION REPORT: DATE OF CONSULT: 08/23/17 REQUESTING PHYSICIAN: Dr. Campbell. CONSULTING SERVICE: Infectious Disease. REASON FOR CONSULT: Perforated appendicitis. IMPRESSION: 1. Perforated appendicitis with phlegmon symptoms for about 2 weeks, improving on antibiotics, not currently an operative candidate. 2. Status post transaortic valve replacement, on Plavix. RECOMMENDATIONS: Ceftriaxone 1 g a day for the next week along with Flagyl 250 mg by mouth twice a day. Follow up with me and surgeons. I am going to place a midline and have a CBC, CMP, and a CRP in a few days on IV antibiotics. Plan is to switch her to Augmentin after she completes that IV course. She understands the need to come back to the hospital for worsening right lower abdominal pain, fever, or anorexia. HISTORY OF PRESENT ILLNESS: An 81-year-old woman who had right flank and lower quadrant pain for about 12 or 14 days. She eventually made her way to the emergency room on the . She had no leukocytosis. She was afebrile but a CT scan showed a ruptured appendix with associated phlegmon. She had Zosyn for a couple of days and then a followup CT on the was unchanged. What did change was a considerable improvement in her right lower quadrant pain, return of her appetite, and resolution of her sweats. PAST MEDICAL HISTORY: 1. Status post TAVR, June 2017. 2. Hypertension. 3. Aortic stenosis. 4. Status post bladder sling. MEDICATIONS: 1. Zosyn 3.375 g IV every 8 hours by extended infusion. 2. Aspirin. 3. Plavix. 4. Heparin subcutaneous injection. 5. Pantoprazole. ALLERGIES: No known drug allergies. FAMILY HISTORY: No recurrent infections. SOCIAL HISTORY: She lives in [place]. She has no sick contacts. REVIEW OF SYSTEMS: All negative to 14-point review of systems except as noted above. PHYSICAL EXAM: Vital Signs: Temperature 37, heart rate 60, respiratory rate 16 , blood pressure 137/63, oxygen saturation 96% on room air. General: She is awake, not in distress. Neurologic: She is oriented x3, follows all commands. HEENT: There is no thrush. Heart: Regular rate and rhythm without murmurs, rubs, or gallops. Lungs are clear to auscultation bilaterally. Abdomen: Soft , nontender, and nondistended. There are bowel sounds present. There is no rebound. Skin: There is no rash or splinter hemorrhages. Musculoskeletal: There is no spine tenderness to palpation. LABORATORY DATA: Creatinine 0.7, CRP was 55 on the 22nd. White blood cell count 4, hemoglobin 12, platelets 199,000. Urinalysis shows blood. Please see impressions and recommendations outlined above which I have discussed with Tiffanie Peraza NP. Thanks for asking me to see Ms. Duarte in consultation. [id number]/[facility] #: [id number] MERI
[2017-08-24] MEDS ORDERED: Clopidogrel TAB* 75 MG PO SCH (09:00)
--- NOTE | 2017-08-24 10:23 | DS ---
CC: Dr. Benjy Nolasco; Dr. Alfonso Lehman * DISCHARGE SUMMARY: DATE OF ADMISSION: 08/19/17 DATE OF DISCHARGE: 08/23/17 ATTENDING SURGEON: Dr. Adi Simon.* (DICTATED BY FLORENCIA SOLORZANO) HOSPITAL COURSE: Please refer to the admission history and physical from . The patient was admitted with what was felt to be likely an appendiceal rupture with symptoms beginning about 3 weeks prior. Decision was made to admit the patient and she was treated with IV antibiotics and has had a course characterized by gradual improvement in pain and tolerance of diet. She has been afebrile throughout. She was seen in consultation by Cardiology (see separate note). The patient was seen on the morning of discharge by Dr. Simon. Vital signs at the morning of discharge, temperature 97.8, blood pressure 133/ 58, pulse 60, respirations 16, room air saturation 97%. See Dr. Simon's note for specifics of physical exam. IMPRESSION: Perforated appendicitis with phlegmon, improving. PLAN: The patient will have a midline IV placed today if possible and then be discharged on ceftriaxone 1 g IV q. day x7 days and Flagyl 250 mg p.o. b.i.d. x7 days. She will then complete 2 additional weeks of oral Augmentin. She has a followup arranged with our office for 08/30/17 at 3:00 p.m. There will also be arrangements made for followup with her primary care provider Dr. Nolasco and Dr. Alfonso Lehman from Infectious Disease. FLORENCIA SOLORZANO [id number]/[facility] #: [id number] MTDD
== END 2017-08-23 19:50 | disposition home or self-care (01) | DRG 372 ==
LOC: ED 11:36 → OR 14:42 → SSU 14:43
PROVIDERS: ADMIT Surgery; ATTEND Surgery
DX: K35.3 Acute appendicitis with localized peritonitis (principal); I50.30 Unspecified diastolic (congestive) heart failure; I35.0 Nonrheumatic aortic (valve) stenosis; I11.0 Hypertensive heart disease with heart failure; R01.1 Cardiac murmur, unspecified; Z95.2 Presence of prosthetic heart valve; Z79.02 Long term (current) use of antithrombotics/antiplatelets; Z79.82 Long term (current) use of aspirin; Z79.899 Other long term (current) drug therapy; Z91.013 Allergy to seafood
CPT/HCPCS: 36415; 74177; 74178; 76377; 80048; 80053; 81003; 81015; 83605; 83690; 84484; 85025; 85610; 86140; 87086; 93005; 99284; A9270-GY; J0696; J1644; J2543; Q9967